=== PATIENT | female | born 1990 | race Native Hawaiian/Other Pacific Islander ===

== ENCOUNTER 2021-03-17 15:49 | Emergency (ER) | payer SELFPAY ==
[2021-03-17] MEDS ORDERED: KETOROLAC 30 MG/1 ML INJ IM ONE (18:46)
[2021-03-17] MEDS ORDERED: CYCLOBENZAPRINE 10 MG TAB PO ONE (18:47)
--- NOTE | 2021-03-17 18:52 | Emergency Department Report ---
HPI - General Chief Complaint: Back Pain/Injury Time Seen by Provider: 03/17/21 18:38 - HPI HPI: 30-year-old female with no known past medical history presents complaining of low back pain for the past week. 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 She says the pain has not gotten much better and she tried taking Tylenol last night but it did not help. Other than that the low back pain which is mostly in the center but somewhat on the left side, she denies any other associated symptoms. She denies any fever/chills, headache, vision change, chest pain, shortness of breath, cough, abdominal pain, nausea/vomiting, dysuria, urgency/hesitancy, hematuria, vaginal discharge, focal weakness, sensory changes, or any other symptoms. Her LMP was March 15. ED Past Medical Hx - Past Medical History Previous Medical History?: No - Social History Smoking Status: Never Smoker - Medications Home Medications: Home Medications Medication Instructions Recorded Confirmed Last Taken Type Cyclobenzaprine [Flexeril] 10 mg PO BID PRN #14 tablet 03/17/21 Unknown Rx Ibuprofen [Motrin 600 MG tab] 600 mg PO Q8H PRN #15 tablet 03/17/21 Unknown Rx ED Review of Systems ROS: Stated complaint: BACK PAIN Other details as noted in HPI Comment: All other systems reviewed and negative Constitutional: denies: chills, fever Eyes: denies: eye pain, vision change ENT: denies: throat pain, congestion Respiratory: denies: cough, shortness of breath Cardiovascular: denies: chest pain, palpitations, syncope Gastrointestinal: denies: abdominal pain, nausea, vomiting Genitourinary: denies: dysuria, frequency, hematuria, discharge Musculoskeletal: back pain. denies: joint swelling Skin: denies: rash, lesions Neurological: denies: headache, weakness, numbness, paresthesias Psychiatric: denies: anxiety, depression Physical Exam - Physical Exam Vital Signs: Vital Signs 03/17/21 16:30 Temperature 98.3 F Pulse Rate 91 H Respiratory 16 Rate Blood Pressure 91/56 O2 Sat by Pulse 97 Oximetry Physical Exam: GENERAL: Well developed and well nourished. No acute distress HEAD: Normocephalic. No obvious signs of trauma. ENT: Moist mucous membranes. EYES: Extraocular movements are intact. Pupils are equal round and reactive to light bilaterally NECK: Supple. Full ROM is intact. Trachea is midline. LUNGS: Nonlabored breathing. Equal chest rise bilaterally. Clear to auscultation bilaterally. CARDIOVASCULAR: Regular rate and rhythm. No murmurs or rubs. VASCULAR: Cap refill < 2 seconds ABDOMEN: Abdomen is soft and nondistended. There is no significant tenderness, guarding or rebound. SKIN: Skin is warm and dry NEURO: Patient is awake, alert, and oriented. heel seat filler II-XII grossly intact. No focal deficits. Normal motor and sensory exam throughout. Normal speech. MUSCULOSKELETAL: No obvious deformities. No significant tenderness. Normal ROM throughout. BACK/SPINE: No mid spinal tenderness or step-offs of the C/T/L spine. There is left paraspinous muscle tenderness in the lumbar region. No costovertebral angle tenderness. ED Course Vital Signs 03/17/21 16:30 Temperature 98.3 F Pulse Rate 91 H Respiratory 16 Rate Blood Pressure 91/56 O2 Sat by Pulse 97 Oximetry ED Medical Decision Making - Lab Data Lab Results 03/17/21 Range/Units 19:58 Urine Color [place] (Yellow) Urine Turbidity Slightly-cloudy (Clear) Urine pH 5.0 (5.0-7.0) Ur Specific [place] 1.039 H (1.003-1.030) Urine Protein 100 mg/dl (Negative) mg/dL Urine Glucose (UA) Neg (Negative) mg/dL Urine Ketones 80 (Negative) mg/dL Urine Blood Mod (Negative) Urine Nitrite Neg (Negative) Urine Bilirubin Neg (Negative) Urine Urobilinogen < 2.0 (<2.0) mg/dL Ur Leukocyte Esterase Neg (Negative) Urine WBC (Auto) 11.0 H (0.0-6.0) /HPF Urine RBC (Auto) > 182.0 (0.0-6.0) /HPF U Epithel Cells (Auto) 1.0 (0-13.0) /HPF Urine Mucus 3+ /HPF Urine HCG, Qual Negative (Negative) - Radiology Data Radiology results: report reviewed - Medical Decision Making 30-year-old female presents with 1 week of low back pain. Denies any associated urinary symptoms. Afebrile and with normal vital signs. Physical examination reveals no midline tenderness or step-offs of the C/T/L-spine. She has a nonfocal neurologic exam. Nonetheless, there is left paraspinous muscle tenderness in the lumbar region. There is no CVA tenderness. We will obtain urinalysis to assess for evidence of UTI/pyelonephritis. We will also obtain test. We will obtain plain film x-rays of the lumbar spine. We will give a dose of IM Toradol and Flexeril and reassess. On repeat assessment, the patient rated her pain is much improved. Labs and imaging are still pending. Urinalysis is consistent with the patient being on her menstrual period currently. No evidence of UTI. Plain film x-rays of the lumbar spine revealed no acute abnormalities. On repeat assessment again at 10:45 PM, the patient reports that her pain is much improved after the medications. I explained the results of the diagnostic test and the likely diagnosis of muscle strain/spasm. I also explained the importance of follow-up with a primary care doctor to ensure that symptoms resolved with muscle relaxants and rice therapy. She expressed understanding and agreement with this plan of care. She understands that Flexeril causes drowsiness and was given drowsiness precautions. Critical care attestation.: If time is entered above; I have spent that time in minutes in the direct care of this critically ill patient, excluding procedure time. ED Disposition Clinical Impression: Lumbar strain Disposition: 01 HOME / SELF CARE / HOMELESS Is pt being admited?: No Condition: Stable Instructions: Lumbar Sprain, Low Back Sprain or Strain Rehab-SportsMed Additional Instructions: Take ibuprofen 600 mg 3 times daily with food as needed for back pain. Please only take Flexeril when you are at home and do not need to operate machinery or car as it causes drowsiness. Follow-up with your primary care doctor in the next several days. Return to the emergency department should you develop significantly worsening symptoms or new health concerns. Prescriptions: Cyclobenzaprine [Flexeril] 10 mg PO BID PRN #14 tablet PRN Reason: Muscle Spasm Ibuprofen [Motrin 600 MG tab] 600 mg PO Q8H PRN #15 tablet PRN Reason: Pain Referrals: [facility] [Provider Group] - 3-5 Days Print Language: ICELANDIC
[2021-03-17 22:06] LABS: Bilirubin,Urine NEG (Negative); Blood,Urine MOD (Negative); Color,Urine Amber (Yellow); Mucus,Urine 3+ /HPF; RBC,Urine > 182.0 /HPF (0.0-6.0); Urobilinogen,Urine < 2.0 mg/dL (<2.0)
[2021-03-17 22:07] LABS: HCG Qualitative,Urine Negative (Negative)
--- NOTE | 2021-03-17 22:42 | XRay Report ---
LUMBAR SPINE 2 VIEWS INDICATION: Back pain for 7 days without a known injury. COMPARISON: No relevant prior imaging study available. FINDINGS: VERTEBRAE: No acute fracture. Normal alignment. DISC SPACES: No significant abnormality. FACET JOINTS: No significant abnormality. SOFT TISSUES: No significant abnormality. ADDITIONAL FINDINGS: No additional significant findings. IMPRESSION: 1. No acute findings. Signer Name: Lenin Lewis MD Signed: 03/17/2021 10:38 PM Workstation Name: [id number]
[2021-03-17 23:44] VITALS: BP 100/62
== END 2021-03-17 23:00 | disposition home or self-care (01) ==
LOC: ED 15:49
DX: S39.012A Strain of muscle, fascia and tendon of lower back, initial encounter (principal); X58.XXXA Exposure to other specified factors, initial encounter; Y93.89 Activity, other specified; Y92.89 Other specified places as the place of occurrence of the external cause; Y99.8 Other external cause status
CPT/HCPCS: 72100; 81001; 81025; 87086; 96372; 99283; J1885